=== PATIENT | female | born 1945 | race Caucasian/White ===

== ENCOUNTER → 2016-11-07 | Outpatient (CLI) | payer MEDICARE, BC ==
[~2016-11-07] MED LIST: ASPIR 8181 M1 PO; Ascorbic Acid,Ester- PO; BENTYL10 MG PO; BIOTIN 5000MCG PO; BIOTIN5 MG PO; CENTRUM SILVER1 EAC3 PO; CIPRO500 MG PO; CLINDAMYCIN HC300 MG PO; COUMADIN PO; CRESTOR10 MG PO; CRESTOR5 MG PO; Colace PO; Coumadin,Jantoven PO; Dilaudid PO; Dulcolax PO; ELAVIL10 MG PO; ESSENTIAL ONE1 EACH PO; ESTER-C 1,0001 EACH PO; FLAGYL500 MG PO; FUROSEMIDE40 MG PO; Feosol PO; LASIX40 MG PO; LEVAQUIN500 MG PO; LYRICA50 MG PO; Lasix PO; Levaquin PO; Lovaza PO; MAGNESIUM OXIDE PO; MELOXICAM7.5 MG PO; METFORMIN HCL500 MG PO; METOPROLOL SUCC50 MG PO; MOBIC7.5 MG PO; NAPROSYN500 MG PO; OMEPRAZOLE20 MG PO; OSTEO BI-FLEX1 EAC1 PO; Osteo-Biflex,Flex-A- PO; REQUIP1 MG PO; ROPINIROLE HCL1 MG PO; SKELAXIN400 M1 PO; Senokot S,Pericolace PO; THERAGRAN1 TABLET PO; TOPROL XL50 MG PO; TRAVATAN Z5 ML BOTH EYES; TUMS500 MG PO; Toprol XL PO; Tums,OsCal PO; Tylenol Regular Stre PO; VIACTIV SOFT C1 EACH PO; VOLTAREN75 MG PO; ZOFRAN4 MG PO
== END | disposition home or self-care (01) ==
LOC: CDC 10:00
DX: R00.1 Bradycardia, unspecified (principal); M25.571 Pain in right ankle and joints of right foot; M19.071 Primary osteoarthritis, right ankle and foot; M20.41 Other hammer toe(s) (acquired), right foot
CPT/HCPCS: 93000

== ENCOUNTER 2017-01-05 22:18 | Inpatient (IN) | payer OTHER, BC ==
[~2017-01-05] VITALS: Ht 154.9 cm; Wt 84.2 kg
[2017-01-05 22:52] LABS: CARBON DIOXIDE (BICARBONATE) 26.2 MEQ/L (20-31)
[2017-01-05 22:53] LABS: HEMATOCRIT 40.9 % (36.0-46.0); MCH 28.8 PG (29.0-34.0); MCHC 32.3 G/DL (30.0-36.0); MCV 89.3 FL (83-99); MEAN PLAT.VOLUME 9.9 uM^3 (9.5-12.4); PLATELET COUNT 300 K/uL (156-360); RBC DIS.WIDTH-CV 13.5 % (11.8-14.6); RED BLOOD COUNT 4.58 M/uL (3.80-5.20); WHITE BLOOD COUNT 10.8 K/uL (4.1-10.2)
[2017-01-05 23:01] LABS: CHLORIDE 107 mEq/L (99-109); POTASSIUM 4.2 mEq/L (3.7-5.4); SODIUM 141 mEq/L (136-147)
[2017-01-05 23:03] LABS: GLUCOSE 113 mg/dL (70-99)
[2017-01-05 23:04] LABS: ANION GAP 13 MEQ/L (2-14)
[2017-01-05 23:07] LABS: GFR ESTIMATE (CALCULATED) > 59 mL/min/
[2017-01-05 23:08] LABS: UREA NITROGEN (BUN) 21 mg/dL (9-23)
[2017-01-05 23:14] LABS: TROP-I INTERPRETATION NEGATIVE; TROPONIN-I 0.05 ng/mL (0.0-0.30)
[2017-01-05 23:28] LABS: D-DIMER ELISA > 4.00 mg/L FEU (< 0.57)
[2017-01-06 03:07] LABS: INTER. NORMALIZED RATIO 1.1; PROTHROMBIN TIME 10.8 (9.2-11.2); PTT 26.3 (25-32)
[2017-01-06 04:21] VITALS: BP 159/79
[2017-01-06] MEDS ORDERED: ASPIRIN325 MG PO (06:03)
[2017-01-06] MEDS ORDERED: SERTRALINE HCL50 MG PO (06:16)
[2017-01-06] MEDS ORDERED: LISINOPRIL2.5 MG PO (06:16)
[2017-01-06 07:39] VITALS: BP 139/63
[2017-01-06 08:21] LABS: POINT-OF-CARE USER ID NUTSLF44
[2017-01-06 10:05] LABS: BASOPHIL COUNT 0.1 K/uL (0-0.1); EOSINOPHIL (%) 3.5 % (0-5); EOSINOPHIL COUNT 0.3 K/uL (0-0.3); HEMATOCRIT 37.7 % (36.0-46.0); IMMATURE GRANULOCYTE (%) 0.2 % (0.0-0.7); INSTRUMENT ABS NEUTROPHIL CT 3.4 K/uL; LYMPHOCYTE COUNT 4.3 K/uL (1.0-2.8); MCH 28.6 PG (29.0-34.0); MCHC 31.8 G/DL (30.0-36.0); MCV 89.8 FL (83-99); MEAN PLAT.VOLUME 10.3 uM^3 (9.5-12.4); MONOCYTE (%) 7.6 % (3-12); MONOCYTE COUNT 0.7 K/uL (0-0.8); NEUTROPHIL (%) 38.6 % (45-76); NEUTROPHIL COUNT 3.4 K/uL (1.8-6.4); PLATELET COUNT 288 K/uL (156-360); RBC DIS.WIDTH-CV 13.8 % (11.8-14.6); RBC DIS.WIDTH-SD 45.1 % (39-53); WHITE BLOOD COUNT 8.8 K/uL (4.1-10.2)
[2017-01-06 11:33] LABS: ANION GAP 13 MEQ/L (2-14); CHLORIDE 106 MEQ/L (99-109); GFR ESTIMATE (CALCULATED) > 59 mL/min/; GLUCOSE 119 mg/dL (70-99); POTASSIUM 4.2 MEQ/L (3.7-5.4); SAMPLE HEMOLYSIS CHECK 0; SAMPLE ICTERIC CHECK 0; SAMPLE LIPEMIA CHECK 0; SODIUM 140 MEQ/L (136-147); UREA NITROGEN (BUN) 17 mg/dL (9-23)
[2017-01-06 11:39] LABS: POINT-OF-CARE USER ID NUTSLF44
[2017-01-06 12:08] VITALS: BP 143/63
[2017-01-06 16:30] VITALS: BP 128/67
[2017-01-06 16:34] LABS: POINT-OF-CARE METER ID UU13113781
[2017-01-06 20:22] VITALS: BP 149/71
[2017-01-06 21:15] LABS: POINT-OF-CARE METER ID UU13113781
[2017-01-07 00:01] VITALS: BP 118/57
[2017-01-07 05:01] VITALS: BP 155/71
[2017-01-07 06:04] LABS: BASOPHIL COUNT 0.1 K/uL (0-0.1); EOSINOPHIL (%) 6.3 % (0-5); EOSINOPHIL COUNT 0.6 K/uL (0-0.3); HEMATOCRIT 37.1 % (36.0-46.0); IMMATURE GRANULOCYTE (%) 0.1 % (0.0-0.7); INSTRUMENT ABS NEUTROPHIL CT 2.6 K/uL; LYMPHOCYTE COUNT 4.9 K/uL (1.0-2.8); MCH 29.5 PG (29.0-34.0); MCHC 32.9 G/DL (30.0-36.0); MCV 89.8 FL (83-99); MEAN PLAT.VOLUME 10.5 uM^3 (9.5-12.4); MONOCYTE (%) 8.1 % (3-12); MONOCYTE COUNT 0.7 K/uL (0-0.8); NEUTROPHIL (%) 29.5 % (45-76); NEUTROPHIL COUNT 2.6 K/uL (1.8-6.4); PLATELET COUNT 285 K/uL (156-360); RBC DIS.WIDTH-CV 13.9 % (11.8-14.6); RBC DIS.WIDTH-SD 45.4 % (39-53); RED BLOOD COUNT 4.13 M/uL (3.80-5.20); WHITE BLOOD COUNT 8.9 K/uL (4.1-10.2)
[2017-01-07 07:25] LABS: ALKALINE PHOSPHATASE 83 IU/L (3-129); ANION GAP 12 MEQ/L (2-14); CHLORIDE 108 MEQ/L (99-109); GFR ESTIMATE (CALCULATED) > 59 mL/min/; GLUCOSE 106 mg/dL (70-99); POTASSIUM 4.2 MEQ/L (3.7-5.4); SAMPLE HEMOLYSIS CHECK 0; SAMPLE ICTERIC CHECK 0; SAMPLE LIPEMIA CHECK 0; SODIUM 141 MEQ/L (136-147); TOTAL BILIRUBIN 0.4 MG/DL (0.0-1.0); UREA NITROGEN (BUN) 14 mg/dL (9-23)
[2017-01-07 08:12] LABS: POINT-OF-CARE METER ID UU13113781; POINT-OF-CARE USER ID NUTSLF44
[2017-01-07 11:23] VITALS: BP 140/66
[2017-01-07 11:57] LABS: POINT-OF-CARE METER ID UU14174216; POINT-OF-CARE USER ID NUTSLF44
[2017-01-07 15:12] VITALS: BP 133/66
[2017-01-07 16:58] LABS: POINT-OF-CARE USER ID NUTSLF44
[2017-01-07 19:57] VITALS: BP 143/62
[2017-01-07 20:29] LABS: POINT-OF-CARE METER ID UU13113781
[2017-01-08] VITALS (7 sets, daily range): BP systolic 108–156; BP diastolic 55–78
[2017-01-08 02:37] LABS: BASOPHIL COUNT 0.1 K/uL (0-0.1); EOSINOPHIL (%) 5.7 % (0-5); EOSINOPHIL COUNT 0.6 K/uL (0-0.3); HEMATOCRIT 37.6 % (36.0-46.0); IMMATURE GRANULOCYTE (%) 0.3 % (0.0-0.7); INSTRUMENT ABS NEUTROPHIL CT 3.7 K/uL; LYMPHOCYTE COUNT 4.9 K/uL (1.0-2.8); MCH 29.2 PG (29.0-34.0); MCHC 33.2 G/DL (30.0-36.0); MCV 87.9 FL (83-99); MEAN PLAT.VOLUME 10.2 uM^3 (9.5-12.4); MONOCYTE (%) 8.9 % (3-12); MONOCYTE COUNT 0.9 K/uL (0-0.8); NEUTROPHIL (%) 36.5 % (45-76); NEUTROPHIL COUNT 3.7 K/uL (1.8-6.4); PLATELET COUNT 309 K/uL (156-360); RBC DIS.WIDTH-CV 13.8 % (11.8-14.6); RBC DIS.WIDTH-SD 43.9 % (39-53); RED BLOOD COUNT 4.28 M/uL (3.80-5.20); WHITE BLOOD COUNT 10.1 K/uL (4.1-10.2)
[2017-01-08 16:26] LABS: GFR ESTIMATE (CALCULATED) > 59 mL/min/; UREA NITROGEN (BUN) 19 mg/dL (9-23)
[2017-01-08 20:55] LABS: POINT-OF-CARE METER ID UU13113781
[2017-01-09] VITALS (7 sets, daily range): BP systolic 106–129; BP diastolic 57–62
[2017-01-09 05:18] LABS: HEMATOCRIT 38.9 % (36.0-46.0); MCH 28.4 PG (29.0-34.0); MCHC 31.9 G/DL (30.0-36.0); MCV 89.2 FL (83-99); MEAN PLAT.VOLUME 9.9 uM^3 (9.5-12.4); PLATELET COUNT 337 K/uL (156-360); RBC DIS.WIDTH-CV 13.8 % (11.8-14.6); RBC DIS.WIDTH-SD 45.1 % (39-53); RED BLOOD COUNT 4.36 M/uL (3.80-5.20)
[2017-01-09 08:06] LABS: POINT-OF-CARE METER ID UU14174216; POINT-OF-CARE USER ID ENVKC36
[2017-01-09 11:45] LABS: POINT-OF-CARE METER ID UU13113781; POINT-OF-CARE USER ID ENVKC36
[2017-01-09 16:39] LABS: POINT-OF-CARE METER ID UU13113781; POINT-OF-CARE USER ID ENVKC36
[2017-01-09 20:55] LABS: POINT-OF-CARE METER ID UU13113781
[2017-01-10 04:00] VITALS: BP 115/58
[2017-01-10 07:11] VITALS: BP 122/57
[2017-01-10 07:55] LABS: POINT-OF-CARE METER ID UU14174216
[2017-01-10 11:30] VITALS: BP 117/56
[2017-01-10 11:38] LABS: POINT-OF-CARE METER ID UU14174216
[2017-01-10] MEDS ORDERED: XARELTO15 MG PO (12:57)
[2017-01-10] MEDS ORDERED: LO-DOSE ASPIRIN81 M2 PO (13:31)
== END 2017-01-10 15:40 | disposition home health service (06) | DRG 176 ==
LOC: EME → EDBD 22:18 → EME 22:18 → EDOF 01-06 03:39 → 4EAST 01-06 03:39
PROVIDERS: Emergency Medicine; Internal Medicine; Student in an Organized Health Care Education/Training Program
DX: I26.99 Other pulmonary embolism without acute cor pulmonale (principal); I82.431 Acute embolism and thrombosis of right popliteal vein; E87.2 Acidosis; I27.2 Other secondary pulmonary hypertension; I08.2 Rheumatic disorders of both aortic and tricuspid valves; I51.9 Heart disease, unspecified; F32.9 Major depressive disorder, single episode, unspecified; M19.071 Primary osteoarthritis, right ankle and foot; E11.9 Type 2 diabetes mellitus without complications; E78.5 Hyperlipidemia, unspecified; I10 Essential (primary) hypertension; Z96.653 Presence of artificial knee joint, bilateral; E66.9 Obesity, unspecified; Z68.35 Body mass index [BMI] 35.0-35.9, adult; Z98.1 Arthrodesis status; Z88.5 Allergy status to narcotic agent; Z79.84 Long term (current) use of oral hypoglycemic drugs
CPT/HCPCS: 71020; 71275; 73610; 73630; 80048; 80053; 82565; 82803; 82948; 83605; 83880; 84484; 84520; 85025; 85027; 85379; 85610; 85730; 87040; 93005; 93306; 93971; 94640; 94799; 99281; 99285; J1815; J7030

== ENCOUNTER 2017-01-14 17:22 | Inpatient (IN) | payer OTHER, BC ==
[~2017-01-14] VITALS: Ht 152.4 cm; Wt 85.1 kg
[~2017-01-14 17:22] MED LIST changes: +ASPIRIN325 MG PO; +LISINOPRIL2.5 MG PO; +LO-DOSE ASPIRIN81 M2 PO; +SERTRALINE HCL50 MG PO; +XARELTO15 MG PO
[2017-01-14 18:43] LABS: EOSINOPHIL (%) 0.9 % (0-5); EOSINOPHIL COUNT 0.1 K/uL (0-0.3); HEMATOCRIT 38.1 % (36.0-46.0); IMMATURE GRANULOCYTE (%) 0.3 % (0.0-0.7); INSTRUMENT ABS NEUTROPHIL CT 8.2 K/uL; LYMPHOCYTE COUNT 3.7 K/uL (1.0-2.8); MCH 29.3 PG (29.0-34.0); MCHC 33.1 G/DL (30.0-36.0); MCV 88.6 FL (83-99); MEAN PLAT.VOLUME 9.8 uM^3 (9.5-12.4); MONOCYTE (%) 8.3 % (3-12); MONOCYTE COUNT 1.1 K/uL (0-0.8); NEUTROPHIL (%) 62.2 % (45-76); NEUTROPHIL COUNT 8.2 K/uL (1.8-6.4); PLATELET COUNT 438 K/uL (156-360); RBC DIS.WIDTH-CV 13.4 % (11.8-14.6); RBC DIS.WIDTH-SD 43.5 % (39-53)
[2017-01-14 18:44] LABS: WHITE BLOOD COUNT 13.2 K/uL (4.1-10.2)
[2017-01-14 18:53] LABS: CHLORIDE 99 mEq/L (99-109); POTASSIUM 4.2 mEq/L (3.7-5.4); SODIUM 134 mEq/L (136-147)
[2017-01-14 18:55] LABS: GLUCOSE 130 mg/dL (70-99)
[2017-01-14 18:56] LABS: ANION GAP 13 MEQ/L (2-14)
[2017-01-14 18:57] LABS: TOTAL BILIRUBIN 0.6 mg/dL (0.0-1.0)
[2017-01-14 18:59] LABS: ALKALINE PHOSPHATASE 95 IU/L (3-129); GFR ESTIMATE (CALCULATED) > 59 mL/min/
[2017-01-14 19:00] LABS: UREA NITROGEN (BUN) 22 mg/dL (9-23)
[2017-01-14] MEDS ORDERED: ASPIR 8181 M1 PO (22:14)
[2017-01-14] MEDS ORDERED: OXAYDO5 MG PO (22:15)
[2017-01-15] VITALS (7 sets, daily range): BP systolic 16–135; BP diastolic 50–63
[2017-01-15 06:22] LABS: HEMATOCRIT 31.5 % (36.0-46.0); MCH 28.9 PG (29.0-34.0); MCHC 31.7 G/DL (30.0-36.0); MEAN PLAT.VOLUME 9.8 uM^3 (9.5-12.4); PLATELET COUNT 355 K/uL (156-360); RBC DIS.WIDTH-CV 13.6 % (11.8-14.6); RED BLOOD COUNT 3.46 M/uL (3.80-5.20); WHITE BLOOD COUNT 10.5 K/uL (4.1-10.2)
[2017-01-15 06:26] LABS: ANION GAP 6 MEQ/L (2-14); CHLORIDE 102 MEQ/L (99-109); GFR ESTIMATE (CALCULATED) > 59 mL/min/; GLUCOSE 126 mg/dL (70-99); POTASSIUM 4.4 MEQ/L (3.7-5.4); SAMPLE HEMOLYSIS CHECK 0; SAMPLE ICTERIC CHECK 0; SAMPLE LIPEMIA CHECK 0; SODIUM 135 MEQ/L (136-147); UREA NITROGEN (BUN) 18 mg/dL (9-23)
[2017-01-15 07:42] LABS: ADD MIUA? YES; BILIRUBIN NEGATIVE; BLOOD NEGATIVE; COLOR YELLOW ((YELLOW)); GLUCOSE (STRIP) NEGATIVE; KETONES NEGATIVE; LEUKOCYTES SMALL; NITRITE NEGATIVE; PROTEIN (STRIP) NEGATIVE; SPECIFIC GRAVITY 1.017 (1.000-1.030); UROBILINOGEN 0.2 MG/DL (0.2-1.0)
[2017-01-15 07:59] LABS: BACTERIA NONE SEEN /HPF; EPITHELIAL CELLS RARE /HPF; MUCUS TRACE /LPF; UCUL ADDED? NO
[2017-01-15 14:46] LABS: Estimated Average Glucose 128 mg/dL (70-123); HEMOGLOBIN A1c (GLYCOHEMOGLOB) 6.1 % HGB (Below 5.7)
[2017-01-15 17:30] LABS: POINT-OF-CARE METER ID UU13113807
[2017-01-15 21:16] LABS: POINT-OF-CARE METER ID UU13113807
[2017-01-16 03:32] VITALS: BP 127/59
[2017-01-16 07:13] VITALS: BP 120/57
[2017-01-16 07:18] LABS: MCH 29.2 PG (29.0-34.0); MCHC 32.6 G/DL (30.0-36.0); MCV 89.7 FL (83-99); MEAN PLAT.VOLUME 10.1 uM^3 (9.5-12.4); PLATELET COUNT 446 K/uL (156-360); RBC DIS.WIDTH-CV 13.5 % (11.8-14.6); RBC DIS.WIDTH-SD 44.3 % (39-53); WHITE BLOOD COUNT 6.7 K/uL (4.1-10.2)
[2017-01-16 07:51] LABS: ANION GAP 10 MEQ/L (2-14); CHLORIDE 105 MEQ/L (99-109); GFR ESTIMATE (CALCULATED) > 59 mL/min/; MAGNESIUM 1.9 mg/dl (1.3-2.7); SAMPLE HEMOLYSIS CHECK 2; SAMPLE ICTERIC CHECK 0; SAMPLE LIPEMIA CHECK 0; SODIUM 137 MEQ/L (136-147); UREA NITROGEN (BUN) 18 mg/dL (9-23)
[2017-01-16 07:52] LABS: GLUCOSE 220 mg/dL (70-99); POTASSIUM 4.5 MEQ/L (3.7-5.4)
[2017-01-16 07:53] LABS: POINT-OF-CARE METER ID UU14149398
[2017-01-16 11:16] VITALS: BP 121/58
[2017-01-16 11:45] LABS: POINT-OF-CARE METER ID UU14149398
[2017-01-16] MEDS ORDERED: AMOX TR-K CLV1 EAC3 PO (14:01)
[2017-01-16] MEDS ORDERED: OXAYDO5 MG PO (14:01)
[2017-01-16] MEDS ORDERED: DELTASONE20 M1 PO (14:01)
[2017-01-16 15:15] VITALS: BP 128/60
== END 2017-01-16 16:02 | DRG 602 ==
LOC: EME 17:22 → EDOF 22:51 → 4SOUTH 22:51
PROVIDERS: Hospitalist; Physician Assistant
DX: L03.114 Cellulitis of left upper limb (principal); M19.032 Primary osteoarthritis, left wrist; M25.532 Pain in left wrist; E11.9 Type 2 diabetes mellitus without complications; Z88.6 Allergy status to analgesic agent; I95.9 Hypotension, unspecified; I10 Essential (primary) hypertension; A41.9 Sepsis, unspecified organism; I26.99 Other pulmonary embolism without acute cor pulmonale; Z96.653 Presence of artificial knee joint, bilateral; E78.00 Pure hypercholesterolemia, unspecified; Z86.718 Personal history of other venous thrombosis and embolism; Z79.82 Long term (current) use of aspirin; M10.9 Gout, unspecified; K21.9 Gastro-esophageal reflux disease without esophagitis; S63.8X2A Sprain of other part of left wrist and hand, initial encounter
CPT/HCPCS: 73110; 73223; 80048; 80053; 81003; 82948; 83036; 83605; 83735; 85025; 85027; 87040; 93971; 94799; 99281; 99285; J0696; J1170; J1815; J1956; J2543; J2930; J3010; J3370; J7030; J7050; J7120

== ENCOUNTER 2017-08-12 23:39 | Emergency (ER) | payer OTHER, BC ==
[~2017-08-12] VITALS: Ht 154.9 cm; Wt 87.5 kg
[~2017-08-12 23:39] MED LIST changes: +AMOX TR-K CLV1 EAC3 PO; +DELTASONE20 M1 PO; +OXAYDO5 MG PO
[2017-08-13] MEDS ORDERED: MOTRIN800 MG PO (02:27)
[2017-08-13] MEDS ORDERED: FLEXERIL10 MG PO (02:27)
[2017-08-13 02:33] VITALS: BP 127/54
== END 2017-08-13 02:42 | disposition home or self-care (01) ==
LOC: EXP 23:39 → EME 23:39 → EXP 08-13 02:42
DX: S16.1XXA Strain of muscle, fascia and tendon at neck level, initial encounter (principal); M54.6 Pain in thoracic spine; S80.02XA Contusion of left knee, initial encounter; S80.01XA Contusion of right knee, initial encounter; S00.01XA Abrasion of scalp, initial encounter; W01.198A Fall on same level from slipping, tripping and stumbling with subsequent striking against other object, initial encounter; E11.9 Type 2 diabetes mellitus without complications; I10 Essential (primary) hypertension; E78.5 Hyperlipidemia, unspecified; K21.9 Gastro-esophageal reflux disease without esophagitis; F32.9 Major depressive disorder, single episode, unspecified; Z96.653 Presence of artificial knee joint, bilateral; Z88.5 Allergy status to narcotic agent; Z88.6 Allergy status to analgesic agent; Z79.84 Long term (current) use of oral hypoglycemic drugs; Z79.82 Long term (current) use of aspirin
CPT/HCPCS: 70450; 72125; 72128; 99281; 99284